=== PATIENT | female | born 1995 | race American Indian/Alaskan Native ===

== ENCOUNTER 2018-09-02 20:43 | Emergency (ER) | payer SELFPAY | END 2018-09-02 23:08 | disposition left against medical advice (07) | LOC: ED 20:43 ==

== ENCOUNTER 2019-08-05 07:32 | Emergency (ER) | payer MEDICAID, OTHER ==
[2019-08-05 07:39] VITALS: BP 108/59
[2019-08-05 07:58] LABS: Basophils % (Auto) 0.6 % (0.0-1.8); Eosinophils # (Auto) 0.1 K/mm3 (0.0-0.4); Eosinophils % (Auto) 1.8 % (0.0-4.3); Lymphocytes % (Auto) 28.2 % (13.4-35.0); Mean Corpuscular HGB Conc 35 % (30-34); Mean Corpuscular Volume 87 fl (79-97); Monocytes # (Auto) 0.6 K/mm3 (0.0-0.8); Monocytes % (Auto) 9.2 % (0.0-7.3); Platelet Count 279 K/mm3 (140-440); Red Blood Count 3.69 M/mm3 (3.65-5.03); Red Cell Distribution Width 13.6 % (13.2-15.2)
[2019-08-05 08:14] LABS: Alanine Aminotransferase 12 units/L (7-56); Albumin 3.7 g/dL (3.9-5); BUN/Creatinine Ratio 23; Blood Urea Nitrogen 9 mg/dL (7-17); Calcium 8.6 mg/dL (8.4-10.2); Hemolysis Index 3
[2019-08-05 08:15] LABS: Bilirubin,Urine NEG (Negative); Blood,Urine NEG (Negative); Color,Urine Yellow (Yellow); Mucus,Urine 3+ /HPF
[2019-08-05] MEDS ORDERED: ACETAMINOPHEN 500 MG TAB PO ONE (08:36)
--- NOTE | 2019-08-05 08:43 | Emergency Department Report ---
ED Female HPI - General Chief complaint: Abdominal Pain Stated complaint: HEADACHE/ABDOMINAL PAIN (PREG) Time Seen by Provider: 08/05/19 08:33 Source: patient Mode of arrival: Ambulatory Limitations: No Limitations - History of Present Illness Initial comments: Josee is a 24-year-old female who is currently 14 weeks 3 days who p resents with headache no abdominal pain. Symptoms have been present for the has a day. She has nonspecific lower nondescript abdominal pain. Mild in severity. Moderate global headache after vomiting. Denies fever. Next chest pain. Denies vaginal bleeding. She has not received any care at this time. Complaint: other (abdominal pain lower) -: Gradual Severity: mild Quality: dull, aching Consistency: constant Improves with: none Worsens with: none Are you Now?: Yes Associated Symptoms: headaches - Related Data Home Medications Medication Instructions Recorded Confirmed Last Taken Vit-Fe Fumar-FA [ 1 tab PO QDAY 01/29/16 04/10/16 1 Day Ago Vitamin] ~04/09/16 Previous Rx's Medication Instructions Recorded Last Taken Type HYDROcodone/APAP 5-325 [[place] 1 each PO Q6HR PRN #30 tablet 04/10/16 Unknown Rx 5/325] Ibuprofen [Motrin] 800 mg PO Q8HR PRN #60 tablet 04/10/16 Unknown Rx Methocarbamol [Robaxin-750] 750 mg PO Q6HR PRN #20 tablet 09/03/18 Unknown Rx Naproxen [Naprosyn] 500 mg PO BID #20 tablet 09/03/18 Unknown Rx Promethazine [Phenergan] 25 mg PO Q6HR PRN #10 tab 08/05/19 Unknown Rx Allergies Allergy/AdvReac Type Severity Reaction Status Date / Time peanut Allergy Severe Shortness Verified 09/03/18 12:35 of Breath ED Review of Systems ROS: Stated complaint: HEADACHE/ABDOMINAL PAIN (PREG) Other details as noted in HPI Comment: All other systems reviewed and negative Constitutional: denies: fever, malaise Cardiovascular: denies: chest pain Gastrointestinal: abdominal pain, nausea, vomiting Neurological: headache ED Past Medical Hx - Past Medical History Previous Medical History?: No Hx Hypertension: No Hx Congestive Heart Failure: No Hx Diabetes: No Hx Deep Vein Thrombosis: No Hx Renal Disease: No Hx Sickle Cell Disease: No Hx Seizures: No Hx Asthma: No Hx COPD: No Hx HIV: No - Social History Smoking Status: Never Smoker Substance Use Type: None - Medications Home Medications: Home Medications Medication Instructions Recorded Confirmed Last Taken Type Vit-Fe Fumar-FA [ 1 tab PO QDAY 01/29/16 04/10/16 1 Day Ago History Vitamin] ~04/09/16 HYDROcodone/APAP 5-325 [[place] 1 each PO Q6HR PRN #30 tablet 04/10/16 Unknown Rx 5/325] Ibuprofen [Motrin] 800 mg PO Q8HR PRN #60 tablet 04/10/16 Unknown Rx Methocarbamol [Robaxin-750] 750 mg PO Q6HR PRN #20 tablet 09/03/18 Unknown Rx Naproxen [Naprosyn] 500 mg PO BID #20 tablet 09/03/18 Unknown Rx Promethazine [Phenergan] 25 mg PO Q6HR PRN #10 tab 08/05/19 Unknown Rx ED Physical Exam - General Limitations: No Limitations General appearance: alert, in no apparent distress - Head Head exam: Present: atraumatic, normocephalic - Eye Eye exam: Present: normal appearance - ENT ENT exam: Present: mucous membranes moist - Neck Neck exam: Present: normal inspection, full ROM - Respiratory Respiratory exam: Present: normal lung sounds bilaterally. Absent: respiratory distress, wheezes, rales, rhonchi - Cardiovascular Cardiovascular Exam: Present: regular rate, normal rhythm, normal heart sounds. Absent: systolic murmur, diastolic murmur, rubs, gallop - GI/Abdominal GI/Abdominal exam: Present: soft, normal bowel sounds. Absent: distended, tenderness, guarding, rebound - Extremities Exam Extremities exam: Present: normal inspection - Neurological Exam Neurological exam: Present: alert, oriented X3 - Psychiatric Psychiatric exam: Present: normal affect, normal mood - Skin Skin exam: Present: warm, dry, intact, normal color. Absent: rash ED Course Vital Signs 08/05/19 07:36 Temperature 98.9 F Pulse Rate 75 Respiratory 18 Rate Blood Pressure 108/59 O2 Sat by Pulse 100 Oximetry ED Medical Decision Making - Lab Data Result diagrams: 08/05/19 07:46 08/05/19 07:46 Laboratory Results - last 24 hr 08/05/19 08/05/19 08/05/19 07:45 07:46 07:46 WBC 7.0 RBC 3.69 Hgb 11.0 Hct 32.0 MCV 87 MCH 30 MCHC 35 H RDW 13.6 Plt Count 279 Lymph % (Auto) 28.2 [place] % (Auto) 9.2 H Eos % (Auto) 1.8 Baso % (Auto) 0.6 Lymph # 2.0 [place] # 0.6 Eos # 0.1 Baso # 0.0 Seg Neutrophils % 60.2 Seg Neutrophils # 4.2 Sodium 138 Potassium 3.8 Chloride 103.3 Carbon Dioxide 19 L Anion Gap 20 BUN 9 Creatinine 0.4 L Estimated GFR > 60 BUN/Creatinine Ratio 23 Glucose 100 Calcium 8.6 Total Bilirubin 0.20 AST 13 ALT 12 Alkaline Phosphatase 45 Total Protein 6.8 Albumin 3.7 L Albumin/Globulin Ratio 1.2 Urine Color Yellow Urine Turbidity Cloudy Urine pH 6.0 Ur Specific [place] 1.040 H Urine Protein 100 mg/dl Urine Glucose (UA) Neg Urine Ketones Neg Urine Blood Neg Urine Nitrite Neg Urine Bilirubin Neg Urine Urobilinogen 2.0 Ur Leukocyte Esterase Lg Urine WBC (Auto) 64.0 H Urine RBC (Auto) 24.0 U Epithel Cells (Auto) 23.0 H Urine Mucus 3+ - Radiology Data Ultrasound OB: Single viable intrauterine fetus intact heart rate estimated gestational age 14 weeks 6 days corresponds to dates - Medical Decision Making Josee is a healthy 23-year-old female who presents with headache vomiting abdominal pain. 1. Headache appears to be tension related to morning sickness and dehydration. Treated with IV hydration and Tylenol. Headache did improve with treatment. 2. Lower abdominal pain, ectopic ruled out with ultrasound. No tenderness or localized pain to indicate appendicitis. I do not suspect ovarian torsion or biliary colic. 3. Lack of care. Josee has obtained health insurance. She is now able to follow up with an stamping die try out worker. I referred her to stamping die try out worker on-call. Prescribed promethazine. Critical care attestation.: If time is entered above; I have spent that time in minutes in the direct care of this critically ill patient, excluding procedure time. ED Disposition Clinical Impression: Tension headache, Dehydration, Second trimester Disposition: DC- TO HOME OR SELFCARE Is pt being admited?: No Does the pt Need Aspirin: No Condition: Stable Instructions: Abdominal Pain in (ED) Prescriptions: Promethazine [Phenergan] 25 mg PO Q6HR PRN #10 tab PRN Reason: Nausea Referrals: LUANN NGUYEN MD [Staff Physician] - 3-5 Days
--- NOTE | 2019-08-05 10:05 | Ultrasound Report ---
OB Ultrasound HISTORY: pelvic pain. Acute cramping TECHNIQUE: Grayscale and color Doppler imaging performed. COMPARISON: None FINDINGS: There is a single viable intrauterine gestation with variable positioning of the fetus. Hea rt rate is 159 bpm. Cervix is 4 cm in length. Overall EGA of the fetus is estimated as 14 weeks and 6 days by evaluating biparietal diameter, head circumference, abdominal circumference, and femoral pradeep gth. There are amniotic fluid pockets greater than 2 cm. Placenta is positioned anteriorly at the fun dus. IMPRESSION: Single viable intrauterine gestation as outlined above. Signer Name: Guillermo Garcia MD Signed: 08/05/2019 10:01 AM Workstation Name: [id number]
== END 2019-08-05 10:33 | disposition home or self-care (01) ==
LOC: ED 07:32
DX: O99.282 Endocrine, nutritional and metabolic diseases complicating pregnancy, second trimester (principal); E86.0 Dehydration; G44.209 Tension-type headache, unspecified, not intractable; Z79.899 Other long term (current) drug therapy; Z3A.14 14 weeks gestation of pregnancy; Z91.010 Allergy to peanuts
CPT/HCPCS: 36415; 76805; 80053; 81001; 84703; 85025; 87086

== ENCOUNTER 2021-07-09 01:20 | Emergency (ER) | payer MEDICAID ==
[2021-07-09 01:52] VITALS: BP 122/79
[2021-07-09 03:40] LABS: Basophils # (Auto) 0.1 K/mm3 (0.0-0.1); Basophils % (Auto) 0.9 % (0.0-1.8); Eosinophils # (Auto) 0.1 K/mm3 (0.0-0.4); Eosinophils % (Auto) 1.3 % (0.0-4.3); Hematocrit 31.8 % (30.3-42.9); Hemoglobin 10.5 gm/dl (10.1-14.3); Lymphocytes # (Auto) 2.7 K/mm3 (1.2-5.4); Lymphocytes % (Auto) 40.7 % (13.4-35.0); Mean Corpuscular HGB Conc 33 % (30-34); Mean Corpuscular Volume 88 fl (79-97); Monocytes # (Auto) 0.6 K/mm3 (0.0-0.8); Monocytes % (Auto) 8.9 % (0.0-7.3); Platelet Count 359 K/mm3 (140-440); Red Blood Count 3.63 M/mm3 (3.65-5.03); Red Cell Distribution Width 13.7 % (13.2-15.2)
[2021-07-09 03:51] LABS: Blood Urea Nitrogen 9 mg/dL (7-17); Calcium 8.6 mg/dL (8.4-10.2); Hemolysis Index 9
[2021-07-09 04:13] LABS: BUN/Creatinine Ratio 18
--- NOTE | 2021-07-09 05:13 | Emergency Department Report ---
ED Female HPI - General Chief complaint: Vaginal Bleeding Stated complaint: 3WKS /BLEEDING Time Seen by Provider: 07/09/21 03:13 Source: patient Mode of arrival: Ambulatory Limitations: No Limitations - History of Present Illness Initial comments: Patient is a G3, who presents for vaginal bleeding and spotting x2 days. Rates bleeding is scant. 1-2 pads per day. There is no fevers no chills no abdominal pain no backache. Last menstrual cycle 3 weeks ago. States positive home test x3 at home. Patient has not seen PERSONNEL ARBITRATOR. Patient denies other exacerbating or relieving factors Complaint: vaginal bleeding - Related Data Home Medications Medication Instructions Recorded Confirmed Last Taken Vit-Fe Fumar-FA [ 1 tab PO QDAY 01/29/16 01/20/20 1 Day Ago Vitamin] ~04/09/16 Previous Rx's Medication Instructions Recorded Last Taken Type HYDROcodone/APAP 5-325 [[place] 1 each PO Q6HR PRN #30 tablet 04/10/16 Unknown Rx 5/325] Ibuprofen [Motrin] 800 mg PO Q8HR PRN #60 tablet 04/10/16 Unknown Rx Naproxen [Naprosyn] 500 mg PO BID #20 tablet 09/03/18 1 Day Ago Rx ~01/19/20 methocarbamoL [Robaxin-750] 750 mg PO Q6HR PRN #20 tablet 09/03/18 Unknown Rx Promethazine [Phenergan] 25 mg PO Q6HR PRN #10 tab 08/05/19 1 Day Ago Rx ~01/19/20 1 Miconazole/Cleanser 17 On [place] 1 each VG QHS 7 Days #1 kit 01/03/20 1 Day Ago Rx [Monistat 7 Combination Pack] ~01/19/20 325 Ferrous Sulfate [Feosol 325 MG tab] 325 mg PO BID #60 tablet 01/19/20 Unknown Rx Ibuprofen [Motrin] 600 mg PO Q6H PRN #60 tablet 01/19/20 Unknown Rx Allergies Allergy/AdvReac Type Severity Reaction Status Date / Time peanut Allergy Severe Shortness Verified 09/03/18 12:35 of Breath ED Review of Systems ROS: Stated complaint: 3WKS /BLEEDING Other details as noted in HPI Constitutional: denies: chills, fever Eyes: denies: eye pain, eye discharge, vision change ENT: denies: ear pain, throat pain Respiratory: denies: cough, shortness of breath, wheezing Cardiovascular: denies: chest pain, palpitations Endocrine: no symptoms reported Gastrointestinal: denies: abdominal pain, nausea, vomiting, diarrhea Genitourinary: abnormal menses. denies: urgency, dysuria, frequency, hematuria, discharge Musculoskeletal: denies: back pain, joint swelling, arthralgia Skin: denies: rash, lesions Neurological: denies: headache, weakness, paresthesias Psychiatric: denies: anxiety, depression Hematological/Lymphatic: denies: easy bleeding, easy bruising ED Past Medical Hx - Past Medical History Hx Hypertension: No Hx Congestive Heart Failure: No Hx Diabetes: No Hx Deep Vein Thrombosis: No Hx Renal Disease: No Hx Sickle Cell Disease: No Hx Seizures: No Hx Asthma: No Hx COPD: No Hx HIV: No - Surgical History Past Surgical History?: No - Social History Smoking Status: Never Smoker - Medications Home Medications: Home Medications Medication Instructions Recorded Confirmed Last Taken Type Vit-Fe Fumar-FA [ 1 tab PO QDAY 01/29/16 01/20/20 1 Day Ago History Vitamin] ~04/09/16 HYDROcodone/APAP 5-325 [[place] 1 each PO Q6HR PRN #30 tablet 04/10/16 01/20/20 Unknown Rx 5/325] Ibuprofen [Motrin] 800 mg PO Q8HR PRN #60 tablet 04/10/16 01/20/20 Unknown Rx Naproxen [Naprosyn] 500 mg PO BID #20 tablet 09/03/18 01/20/20 1 Day Ago Rx ~01/19/20 methocarbamoL [Robaxin-750] 750 mg PO Q6HR PRN #20 tablet 09/03/18 01/20/20 Unknown Rx Promethazine [Phenergan] 25 mg PO Q6HR PRN #10 tab 08/05/19 01/20/20 1 Day Ago Rx ~01/19/20 1 Miconazole/Cleanser 17 On [place] 1 each VG QHS 7 Days #1 kit 01/03/20 01/20/20 1 Day Ago Rx [Monistat 7 Combination Pack] ~01/19/20 325 Ferrous Sulfate [Feosol 325 MG tab] 325 mg PO BID #60 tablet 01/19/20 Unknown Rx Ibuprofen [Motrin] 600 mg PO Q6H PRN #60 tablet 01/19/20 Unknown Rx ED Physical Exam - General Limitations: No Limitations General appearance: alert, in no apparent distress - Head Head exam: Present: atraumatic, normocephalic - Eye Eye exam: Present: normal appearance, EOMI Pupils: Present: normal accommodation - ENT ENT exam: Present: mucous membranes moist - Neck Neck exam: Present: normal inspection - Respiratory Respiratory exam: Present: normal lung sounds bilaterally. Absent: respiratory distress, wheezes - Cardiovascular Cardiovascular Exam: Present: regular rate, normal rhythm, normal heart sounds. Absent: systolic murmur, diastolic murmur, rubs, gallop - GI/Abdominal GI/Abdominal exam: Present: soft, normal bowel sounds. Absent: distended, tenderness, guarding, rebound, rigid, bruit, hernia - Rectal Rectal exam: Present: deferred - External exam: Present: other (defered by patient ) - Extremities Exam Extremities exam: Present: normal inspection, full ROM, normal capillary refill. Absent: tenderness - Back Exam Back exam: Present: normal inspection, full ROM. Absent: CVA tenderness (R), CVA tenderness (L) - Neurological Exam Neurological exam: Present: alert, oriented X3, CN II-XII intact, normal gait - Psychiatric Psychiatric exam: Present: normal affect, normal mood - Skin Skin exam: Present: warm, dry, intact, normal color. Absent: rash ED Course Vital Signs 07/09/21 01:48 Temperature 98.5 F Pulse Rate 65 Respiratory 17 Rate Blood Pressure 122/79 [Right] O2 Sat by Pulse 100 Oximetry ED Medical Decision Making - Lab Data Result diagrams: 07/09/21 03:17 07/09/21 03:17 Labs 07/09/21 07/09/21 07/09/21 03:17 03:17 03:17 WBC 6.7 RBC 3.63 L Hgb 10.5 Hct 31.8 MCV 88 MCH 29 MCHC 33 RDW 13.7 Plt Count 359 Lymph % (Auto) 40.7 H [place] % (Auto) 8.9 H Eos % (Auto) 1.3 Baso % (Auto) 0.9 Lymph # (Auto) 2.7 [place] # (Auto) 0.6 Eos # (Auto) 0.1 Baso # (Auto) 0.1 Seg Neutrophils % 48.2 Seg Neutrophils # 3.2 Sodium 138 Potassium 3.9 Chloride 105.8 Carbon Dioxide 22 Anion Gap 14 BUN 9 Creatinine 0.5 L Estimated GFR > 60 BUN/Creatinine Ratio 18 Glucose 99 Calcium 8.6 HCG, Quant 73.81 H Blood Type Ord Rhogam Gestat Weeks 07/09/21 03:17 WBC RBC Hgb Hct MCV MCH MCHC RDW Plt Count Lymph % (Auto) [place] % (Auto) Eos % (Auto) Baso % (Auto) Lymph # (Auto) [place] # (Auto) Eos # (Auto) Baso # (Auto) Seg Neutrophils % Seg Neutrophils # Sodium Potassium Chloride Carbon Dioxide Anion Gap BUN Creatinine Estimated GFR BUN/Creatinine Ratio Glucose Calcium HCG, Quant Blood Type B POSITIVE Ord Rhogam Gestat Weeks Rh pos - Radiology Data Radiology results: report reviewed, image reviewed ULTRASOUND OBSTETRIC INDICATION / CLINICAL INFORMATION: , vaginal bleeding. Serum hCG level = 73.8 Clinical Gestational Age (GA) in weeks, days: 3, 6 TECHNIQUE: Transabdominal. COMPARISON: None available. FINDINGS: UTERUS: No intrauterine identified. Uterus is normal size measuring 9.7 x 5.0 x 4.9 cm with endometrial thickness of 0.6 cm. ADNEXA: 1.8 cm physiologic cyst of the right ovary. Normal color Doppler flow. Left ovary was not identified. No left adnexal cyst or mass. FREE FLUID: None. ADDITIONAL FINDINGS: None. IMPRESSION: 1. No intrauterine . Signer Name: Farida Arias MD Signed: 07/09/2021 5:39 AM Workstation Name: [id number] - Medical Decision Making Ultrasound right ovarian cyst, no intrauterine noted. H/H normal. Discussed findings with patient. Patient will follow-up with PERSONNEL ARBITRATOR in 2 to 3 days. Labs noted patient is blood type B+ , RH+, patient will be DC'd in stable condition at this time. Critical care attestation.: If time is entered above; I have spent that time in minutes in the direct care of this critically ill patient, excluding procedure time. ED Disposition Clinical Impression: Ovarian cyst, right, Abnormal uterine bleeding (AUB) Disposition: 01 HOME / SELF CARE / HOMELESS Is pt being admited?: No Does the pt Need Aspirin: No Condition: Stable Instructions: Ovarian Cyst, [id number], Abnormal Uterine Bleeding Additional Instructions: Take [id number] NSAIDs as needed for pain, follow-up with your PERSONNEL ARBITRATOR in 2 to 3 days. Return to emergency department should symptoms worsen. Referrals: YADIRA SUÁREZ JR, MD [Staff Physician] - 3-5 Days Forms: Work/School Release Form(ED) Time of Disposition: 06:38
--- NOTE | 2021-07-09 05:43 | Ultrasound Report ---
ULTRASOUND OBSTETRIC INDICATION / CLINICAL INFORMATION: , vaginal bleeding. Serum hCG level = 73.8 Clinical Gestational Age (GA) in weeks, days: 3, 6 TECHNIQUE: Transabdominal. COMPARISON: None available. FINDINGS: UTERUS: No intrauterine identified. Uterus is normal size measuring 9.7 x 5.0 x 4.9 cm with endometrial thickness of 0.6 cm. ADNEXA: 1.8 cm physiologic cyst of the right ovary. Normal color Doppler flow. Left ovary was not mainor ntified. No left adnexal cyst or mass. FREE FLUID: None. ADDITIONAL FINDINGS: None. IMPRESSION: 1. No intrauterine . Signer Name: Farida Arias MD Signed: 07/09/2021 5:39 AM Workstation Name: [id number]
== END 2021-07-09 06:22 | disposition home or self-care (01) ==
LOC: ED 01:20
DX: N83.201 Unspecified ovarian cyst, right side (principal); N93.8 Other specified abnormal uterine and vaginal bleeding; Z91.010 Allergy to peanuts
CPT/HCPCS: 36415; 76801; 80048; 84702; 85025; 86900; 86901

== ENCOUNTER 2022-01-30 20:17 | Emergency (ER) | payer MEDICAID | END 2022-01-30 21:44 | disposition left against medical advice (07) | LOC: ED 20:17 | DX: R51.9 Headache, unspecified (principal); Z53.21 Procedure and treatment not carried out due to patient leaving prior to being seen by health care provider ==